=== PATIENT | female | born 1990 | race Caucasian/White ===

== ENCOUNTER 2024-09-15 08:14 | Emergency (ER) | payer MEDICARE ==
[~2024-09-15] VITALS: Ht 160 cm; Wt 77.1 kg
[2024-09-15 08:22] VITALS: PULSE 94; RESP 20; TEMP 97.9; O2SAT 96
[2024-09-15] MEDS ORDERED: KETOROLAC TROMETHAMINE 30 MG/ML VIAL ONE (08:34)
[2024-09-15] MEDS: KETOROLAC TROMETHAMINE 30 MG/ML VIAL IM STA (08:40)
[2024-09-15] MEDS ORDERED: ONDANSETRON HCL 4 MG ORAL DISINTEGRATING TAB ONE (08:41)
[2024-09-15] MEDS: ONDANSETRON HCL 4 MG ORAL DISINTEGRATING TAB PO ONE (08:44)
== END 2024-09-15 09:48 | disposition home or self-care (01) ==
LOC: ER 08:26
DX: G89.29 Other chronic pain (principal); R11.2 Nausea with vomiting, unspecified; Z79.891 Long term (current) use of opiate analgesic
CPT/HCPCS: 99282; J1885; Q0162